=== PATIENT | male | born 1995 | race African-American/Black ===

== ENCOUNTER 2016-07-02 08:36 | Outpatient (CLI) | END 2016-07-02 08:37 | LOC: AMBL 08:36 | PROVIDERS: ATTEND Emergency Medicine | DX: R07.9 Chest pain, unspecified (principal); R53.1 Weakness ==

== ENCOUNTER 2016-07-24 12:43 | Outpatient (CLI) ==
[2016-07-24 13:04] LABS: BASOPHILS % (AUTO) 0.3 % (0.0-3.0); EOSINOPHILS # (AUTO) 0.1 K/ul (0.0-0.7); EOSINOPHILS % (AUTO) 1.2 % (0.0-7.0); HEMOGLOBIN 15.5 g/dl (14.0-18.0); IMMATURE GRANULOCYTE % (AUTO) 0.1 % (0.0-5.0); LYMPHOCYTES # (AUTO) 1.9 K/uL (0.60-3.4); LYMPHOCYTES % (AUTO) 28.4 (10.0-50.0); MEAN CORPUSCULAR HEMOGLOBIN 28.4 pg (27.0-31.0); MEAN CORPUSCULAR HGB CONC 33.7 (31.8-35.4); MEAN CORPUSCULAR VOLUME 84.2 fl (80.0-94.0); MONOCYTES # (AUTO) 0.5 K/uL (0.4-2.0); MONOCYTES % (AUTO) 7.3 (0-10); NEUTROPHILS # (AUTO) 4.3 K/ul (2.0-6.9); NEUTROPHILS % (AUTO) 62.7; PLATELET COUNT 233 10^3/uL (140-440); RED BLOOD COUNT 5.46 10^6/ul (4.70-6.10); WHITE BLOOD COUNT 6.82 K/ul (4.2-10.2)
[2016-07-24 13:49] LABS: ALBUMIN 3.7 g/dL (3.4-5.0); ALBUMIN/GLOBULIN RATIO 0.97; ANION GAP 13.4; BILIRUBIN,TOTAL 0.48 mg/dL (0.00-1.20); BUN/CREATININE RATIO 12.94; CALCIUM 9.3 mg/dL (8.2-10.2); CREATININE 0.85 mg/dL (0.60-1.10); POTASSIUM 4.4 mmol/L (3.5-5.1); TOTAL PROTEIN 7.5 g/dL (6.4-8.2)
== END 2016-07-24 12:44 | disposition home or self-care (01) ==
LOC: CAR 12:43
PROVIDERS: ATTEND Internal Medicine
DX: R07.9 Chest pain, unspecified (principal); I10 Essential (primary) hypertension; E66.9 Obesity, unspecified
CPT/HCPCS: 36415; 80053; 80061; 83036; 84443; 85025; 93005; 93010

== ENCOUNTER 2017-11-13 16:08 | Outpatient (CLI) | END 2017-11-13 16:09 | disposition home or self-care (01) | LOC: RHC-LAB 16:08 | PROVIDERS: ATTEND Nurse Practitioner Family | DX: I10 Essential (primary) hypertension (principal); Z20.2 Contact with and (suspected) exposure to infections with a predominantly sexual mode of transmission | CPT/HCPCS: 36415; 80053; 80061; 80074; 81001; 86592; 86631; 86695; 86696; 87086; 87389; 87800 ==